=== PATIENT | male | born 1945 | race Caucasian/White ===

== ENCOUNTER → 2019-06-21 | Outpatient (CLI) | payer OTHER | END | disposition home or self-care (01) | LOC: LAB EV 11:23 → LAB SHORT 11:23 | DX: M10.9 Gout, unspecified (principal) | CPT/HCPCS: 84550 ==

== ENCOUNTER 2020-05-15 08:28 | Day surgery (SDC) | payer OTHER ==
[~2020-05-15] VITALS: Ht 170 cm; Wt 70.3 kg
[2020-05-15] MEDS ORDERED: AMLO10 PO (08:44)
[2020-05-15] MEDS ORDERED: LOSA50 PO (08:45)
[2020-05-15] MEDS ORDERED: ALBU90OI INH (08:46)
--- NOTE | 2020-05-15 10:14 | NUR ---
Ambulatory in Day Surgery History, Chart, Medications and Allergies reviewed before start of procedure.Patient confirms NPO status and agrees with scheduled surgery. Patient reports completing Chlorhexadine shower X2 prior to admission to hospital.Surgical site prepped with 2% Chlorhexidine cloth wipe.
== END 2020-05-15 22:45 | disposition home or self-care (01) ==
LOC: ORSCMMR 08:28
PROVIDERS: Surgery
PROC: 0YU54JZ Supplement Right Inguinal Region with Synthetic Substitute, Percutaneous Endoscopic Approach (ICD-10-PCS; principal; 2020-05-15 10:00)
PROC: 8E0W4CZ Robotic Assisted Procedure of Trunk Region, Percutaneous Endoscopic Approach (ICD-10-PCS; principal; 2020-05-15 10:00)
DX: K40.90 Unilateral inguinal hernia, without obstruction or gangrene, not specified as recurrent (principal); I10 Essential (primary) hypertension; J44.9 Chronic obstructive pulmonary disease, unspecified; Z87.891 Personal history of nicotine dependence; Z79.899 Other long term (current) drug therapy
CPT/HCPCS: 49650; S2900; A9270; C1781; J0690; J1100; J1885; J2250; J2370; J2405; J2704; J3010; J7120

== ENCOUNTER → 2021-10-08 | Outpatient (CLI) | payer OTHER ==
[~2021-10-08] MED LIST: ALBU90OI INH; AMLO10 PO; LOSA50 PO
== END | disposition home or self-care (01) ==
LOC: LAB SHORT 18:48 → LAB 18:48
DX: N39.0 Urinary tract infection, site not specified (principal)
CPT/HCPCS: 87077; 87086; 87186